=== PATIENT | female | born 2000 | race Caucasian/White ===

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

== ENCOUNTER 2022-10-24 01:13 | Emergency (ER) | payer OTHER ==
[2022-10-24 01:35] LABS: BASOPHILS # (AUTO) 0.1 10^3/uL (0.0-0.1); BASOPHILS % (AUTO) 0.7 %; EOSINOPHILS # (AUTO) 0.2 10^3/uL (0.0-0.7); EOSINOPHILS % (AUTO) 2.1 %; HCT - HEMATOCRIT 36.3 % (37.0-47.0); HGB - HEMOGLOBIN 12.2 g/dL (12.0-16.0); LYMPHOCYTES # (AUTO) 3.9 10^3/uL (1.5-3.5); LYMPHOCYTES % (AUTO) 33.9 %; MEAN CORPUSCULAR HEMOGLOBIN 29.4 pg (27.0-31.0); MEAN CORPUSCULAR HGB CONC 33.6 g/dL (32.0-36.0); MEAN CORPUSCULAR VOLUME 87.5 fL (81.0-99.0); MEAN PLATELET VOLUME 8.8 fL (7.9-10.8); MONOCYTES # (AUTO) 1.2 10^3/uL (0.0-1.0); MONOCYTES % (AUTO) 10.7 %; NEUTROPHILS % (AUTO) 52.4 %; PLT - PLATELET COUNT 373 10^3/uL (130-450); RED BLOOD COUNT 4.15 10^6/uL (4.20-5.40); RED CELL DISTRIBUTION WIDTH 12.2 % (12.0-15.0); WHITE BLOOD COUNT 11.4 x10^3/uL (4.8-10.8)
[2022-10-24] MEDS ORDERED: ONDANSETRON 4 MG/2 ML VIAL IVP STA (01:40)
[2022-10-24] MEDS ORDERED: SODIUM CHLORIDE 0.9% 500 ML IV STA (01:40)
[2022-10-24] MEDS ORDERED: MORPHINE 2 MG/ML CARPUJECT IVP STA (01:40)
[2022-10-24 01:42] LABS: BILIRUBIN,URINE NEGATIVE (NEGATIVE); GLUCOSE, URINE (UA) NEGATIVE (NEGATIVE); KETONES,URINE (UA) NEGATIVE (NEGATIVE); LEUKOCYTE ESTERASE, URINE NEGATIVE (NEGATIVE); NITRITE,URINE NEGATIVE (NEGATIVE); OCCULT BLOOD,URINE LARGE (NEGATIVE); PROTEIN,URINE NEGATIVE (NEGATIVE); UROBILINOGEN,URINE 0.2 (NORMAL) E.U./dL (NORMAL)
--- NOTE | 2022-10-24 01:43 | ED Physician Documentation ---
History of Present Illness - Stated complaint Stated Complaint: RT LOWER ABD PX - Chief complaint Chief Complaint: Abd Pain - History obtained from History obtained from: Patient - Additonal information Additional information: 22yF previously healthy p/w RUQ pain starting suddenly around 2230 tonight, sharp, severe, intermittent radiating to the back, a/w nausea but no vomiting or diarrhea. denies fever or urinary sx. PD PAST MEDICAL HISTORY - Past Medical History Cardiovascular: None Respiratory: None Endocrine/Autoimmune: None GI: None ATOMIC SPECTROSCOPIST: None : None HEENT: None Psych: None Musculoskeletal: None Derm: None - Past Surgical History Past Surgical History: No - Present Medications Home Medications: Ambulatory Orders Medication Instructions Recorded Confirmed Albuterol Sulfate [Proventil Hfa 1 - 2 puffs IH Q4H PRN #1 01/19/16 10/24/22 Inhaler] [email or web address] Ethinyl Estradiol/Drospirenone 1 tab PO DAILY 01/19/16 10/24/22 [Ruth 3 mg-0.02 mg Tablet] Ketorolac [Toradol] 10 mg PO Q6H PRN #20 tablet 10/24/22 Ondansetron Odt [Zofran Odt] 4 mg TL Q6H PRN #10 tablet 10/24/22 Tamsulosin [Flomax] 0.4 mg PO DAILY 14 Days #14 tab 10/24/22 - Allergies Allergies/Adverse Reactions: Allergies Allergy/AdvReac Type Severity Reaction Status Date / Time No Known Drug Allergies Allergy Verified 10/24/22 01:20 - Social History Does the pt smoke?: No Smoking Status: Never smoker Does the pt drink ETOH?: No Does the pt have substance abuse?: No - Immunizations Immunizations are current?: Yes PD ED PE NORMAL - Vitals Vital signs reviewed: Yes - General General: Alert and oriented X 3, No acute distress, Well developed/nourished - HEENT HEENT: Atraumatic, PERRL, EOMI - Neck Neck: Supple, no meningeal sign - Cardiac Cardiac: RRR - Respiratory Respiratory: No respiratory distress, Clear bilaterally - Abdomen Abdomen: Non tender, Non distended, Other (RUQ discomfort to palpation) Results - Vitals Vitals: Vital Signs - 24 hr 10/24/22 10/24/22 10/24/22 01:17 02:00 02:31 Temperature 36.8 C Heart Rate 63 69 68 Respiratory 24 18 16 Rate Blood Pressure 114/68 96/75 93/53 L O2 Saturation 99 100 100 Oxygen O2 Source Room air - Labs Labs: Laboratory Tests 10/24/22 10/24/22 10/24/22 01:25 01:25 01:30 WBC 11.4 H RBC 4.15 L Hgb 12.2 Hct 36.3 L MCV 87.5 MCH 29.4 MCHC 33.6 RDW 12.2 Plt Count 373 MPV 8.8 Neut # (Auto) 6.0 Lymph # (Auto) 3.9 H [place] # (Auto) 1.2 H Eos # (Auto) 0.2 Baso # (Auto) 0.1 Absolute Nucleated RBC 0.00 Nucleated RBC % 0.0 Sodium Potassium Chloride Carbon Dioxide Anion Gap BUN Creatinine Estimated GFR (MDRD) Glucose Calcium Total Bilirubin AST ALT Alkaline Phosphatase Total Protein Albumin Globulin Albumin/Globulin Ratio Lipase Urine Color YELLOW Urine Clarity HAZY Urine pH 6.0 Ur Specific [place] 1.020 Urine Protein NEGATIVE Urine Glucose (UA) NEGATIVE Urine Ketones NEGATIVE Urine Occult Blood LARGE H Urine Nitrite NEGATIVE Urine Bilirubin NEGATIVE Urine Urobilinogen 0.2 (NORMAL) Ur Leukocyte Esterase NEGATIVE Urine RBC 11-25 H Urine WBC 0-3 Ur Squamous Epith Cells MOD Squamous H Urine Bacteria None Seen Ur Microscopic Review INDICATED Urine Culture Comments NOT INDICATED Urine HCG, Qual NEGATIVE 10/24/22 01:30 WBC RBC Hgb Hct MCV MCH MCHC RDW Plt Count MPV Neut # (Auto) Lymph # (Auto) [place] # (Auto) Eos # (Auto) Baso # (Auto) Absolute Nucleated RBC Nucleated RBC % Sodium 134 L Potassium 3.2 L Chloride 103 Carbon Dioxide 24 Anion Gap 7.0 BUN 13 Creatinine 0.8 Estimated GFR (MDRD) 89 Glucose 130 H Calcium 9.0 Total Bilirubin 0.4 AST 15 ALT 11 Alkaline Phosphatase 53 Total Protein 6.9 Albumin 4.0 Globulin 2.9 Albumin/Globulin Ratio 1.4 Lipase 24 Urine Color Urine Clarity Urine pH Ur Specific [place] Urine Protein Urine Glucose (UA) Urine Ketones Urine Occult Blood Urine Nitrite Urine Bilirubin Urine Urobilinogen Ur Leukocyte Esterase Urine RBC Urine WBC Ur Squamous Epith Cells Urine Bacteria Ur Microscopic Review Urine Culture Comments Urine HCG, Qual PD Medical Decision Making - ED course ED course: 22yF p/w RUQ pain concerning for gallstones vs kidney stones vs gas pains. cbc, abdominal panel, ua, hcg ordered. Provided IV zofran, morphine, IVF with improvement in pain and nausea. plan to f/u labs. mild leukocytosis with wbc 11. u/a shows large blood concerning for kid stones. ct ordered (no u/s overnight). potassium a little low - repleted orally. return precautions given. plan to f/u outpatient urology Departure - Departure Disposition: Home, Self Care Clinical Impression: Abdominal pain, Nausea, Kidney stone Condition: Stable Instructions: Abdominal Pain Follow-Up: Petrona Gill MD [Physician No Access] - Prescriptions: Tamsulosin [Flomax] 0.4 mg PO DAILY 14 Days #14 tab Ketorolac [Toradol] 10 mg PO Q6H PRN #20 tablet PRN Reason: Pain Ondansetron Odt [Zofran Odt] 4 mg TL Q6H PRN #10 tablet PRN Reason: Nausea / Vomiting Comments: You were seen in the emergency department for kidney stone. You have about a 4 to 5 mm stone in your right ureter (the tube between the kidney and bladder). Pain meds were sent to [facility] in [place]. Please follow-up with urology and return to the emergency department if you have any new or worsening symptoms or other concerns. Forms: PCP List
[2022-10-24 01:48] LABS: CLARITY,URINE HAZY (CLEAR); HCG UR QUAL NEGATIVE
[2022-10-24 02:07] LABS: BACTERIA,URINE None Seen /HPF (None Seen); SQUAMOUS EPITHELIAL CELL,UR MOD Squamous (<= Few); WBC,URINE 0-3 /HPF (0-5)
[2022-10-24 02:11] LABS: ALBUMIN/GLOBULIN RATIO 1.4 (1.0-2.2); BILIRUBIN,TOTAL 0.4 mg/dL (0.2-1.0); CREATININE 0.8 mg/dL (0.6-1.3); POTASSIUM 3.2 mmol/L (3.5-4.5); TOTAL PROTEIN 6.9 g/dL (6.4-8.9)
[2022-10-24] MEDS ORDERED: SODIUM CHLORIDE 0.9% 1,000 ML IV STA (02:19)
[2022-10-24] MEDS ORDERED: KETOROLAC 15 MG/ML VIAL IVP STA (02:20)
[2022-10-24 02:32] VITALS: O2SAT 100
[2022-10-24 04:22] VITALS: BP 103/62
--- NOTE | 2022-10-24 06:56 | CT Report ---
PROCEDURE: ABDOMEN/PELVIS WO INDICATIONS: hematuria, R flank pain TECHNIQUE: A CT scan of the abdomen and pelvis was performed without the use of intravenous contrast. Images we re recorded and evaluated at appropriate window settings. Reformats: coronal and sagittal. For radiat ion dose reduction, the following was used: automated exposure control, adjustment of mA and/or kV ac cording to patient size. COMPARISON: None. FINDINGS: Image quality: Excellent. Lung bases and heart: Unremarkable. Liver: No solid mass. Gallbladder and biliary tree: No radiopaque stones or wall thickening. No biliary dilation. Spleen: No splenomegaly. Pancreas: No pancreatic ductal dilation. Adrenals: No adrenal nodule. Kidneys and ureters: There is a 4 mm obstructing calculus within the right ureteropelvic junction res ulting in mild right proximal hydroureteronephrosis. The left kidney is normal in appearance without hydronephrosis or nephrolithiasis. Bowel and peritoneum: No bowel distension. No pathologic free fluid. Normal appendix. Lymph nodes: No central or retroperitoneal adenopathy. Vessels: No infrarenal aortic aneurysm. PELVIS Reproductive organs: Unremarkable. Bladder: No wall thickness, accounting for underdistention. Decompressed, limiting evaluation. Pelvic lymph nodes: No pelvic adenopathy by size criteria. Bones: No aggressive osseous abnormality. Other: No significant ventral or inguinal hernia. IMPRESSION: There is a 4 mm obstructing calculus within the right UPJ resulting in mild proximal hydroureteroneph rosis and mild renal edema. Findings are concordant with preliminary interpretation provided by [facility]. Reviewed by: Leopoldo Miguel MD on 10/24/2022 6:54 AM PDT Approved by: Leopoldo Miguel MD on 10/24/2022 6:54 AM PDT Station ID: [id number]
== END 2022-10-24 04:14 | disposition home or self-care (01) ==
LOC: ED 01:13
DX: N13.2 Hydronephrosis with renal and ureteral calculous obstruction (principal)
CPT/HCPCS: 36415; 80053; 81001; 81003; 81025; 83690; 85025; 87086; 96374; 96375; 99284

== ENCOUNTER 2023-01-08 13:16 | Outpatient (CLI) | payer OTHER ==
--- NOTE | 2023-01-08 14:38 | XRAY Report ---
PROCEDURE: Shoulder 3 View RT INDICATIONS: PAIN IN RIGHT SHOULDER TECHNIQUE: 3 views of the shoulder were acquired. COMPARISON: None. FINDINGS: Bones: No fractures or dislocations. No suspicious bony lesions. Visualized ribs appear intact. Soft tissues: No suspicious soft tissue calcifications. The visualized lungs are within normal limi ts. IMPRESSION: No acute bony abnormality. If clinical symptoms persist or if there is clinical suspicion for interna l derangement, consider MRI for further aeration. Reviewed by: Zeynep Torres MD on 01/08/2023 2:37 PM PST Approved by: Zeynep Torres MD on 01/08/2023 2:37 PM PST Station ID: [id number]
== END 2023-01-08 13:17 | disposition home or self-care (01) ==
LOC: DI 13:16
PROVIDERS: ATTEND Physician Assistant Medical
DX: M25.511 Pain in right shoulder (principal)